=== PATIENT | female | born 1940 | race Caucasian/White ===

== ENCOUNTER → 2016-08-11 | Outpatient (CLI) | payer OTHER ==
[~2016-08-11] MED LIST: ALBUTEROL17 GM INH; ASPIRINEC PO; AUGMENTIN875 M1 PO; BAYER ASPIRIN325 M1 PO; BENICAR; BENZONATATE PO; BLOOD PRESSURE MED; BYSTOLIC10 MG PO; CALCIUM CARBON500 MG PO; CHOLESTEROL MA600 MG PO; CRESTOR PO; FISH OIL SOFTGE1 CA1 PO; FORTAMET1000 MG/B1 PO; GLIPIZIDE5 MG/BOTTL PO; HYCODAN60 ML 5MG/ PO; JANUMET XR 50-1 EAC1; JANUMET XR 50-1 EAC1 PO; JANUVIA50 MG PO; KRILL OIL500 MG; LEVAQUIN PO; LEVOFLOXACIN500 MG PO; LIDODERM30 EA TOP; LISINOPRIL PO; LISINOPRIL20 MG PO; MEGARED OMEGA-1 EAC1; METFORMIN PO; METOPROLOL TAR25 MG PO; MOBIC PO; NORVASC PO; NORVASC10 MG PO; PERCOCET5/325 PO; POLYTRIM EYE DR10 ML OP; PREDNISONE PO; PREDNISONE1 MG; PREDNISONE10 MG PO; PRINIVIL20 M1 PO; PROMETHAZINE D118 ML PO; ROBAXIN500 MG PO; SIMVASTATIN20 MG; SYMBICORT INH; TAMIFLU75 M1 DOB; TAMIFLU75 M1 PO; TOPROL XL50 MG; ULTRAM PO; VICODIN 5-3001 EACH; VICODIN 5/500 T1 TAB PO; VIT C; VIT E PO; VITAMIN D400 UNI1 PO; ZITHROMAX PO; ZOCOR PO; [UNRECOGNIZED DRUG - OTHER] PO; [UNRECOGNIZED DRUG - REMARK]
--- NOTE | ~2016-08-11 | CR7 ---
[facility] A Service of [facility] RADIOLOGY TEXT RESULTS PATIENT: ADRIENNE ROJAS LOCATION: [facility] : 41 UNIT #: [id number] AGE: [address]: Carolina Ballard MD SEX: F ORDER DR: [id number] [address] [address] [id number] O MR#: [id number] Acc #: [id number] NAME: ADRIENNE ROJAS : 1940 SEX: F STUDY DATE/TIME: 08/11/2016 12:45 UNIT: [facility] ROOM: STUDY DESCRIPTION: CR Abdomen Single AP View Attending Physician: Carolina Ballard M.D. Referring Physician: Carolina Ballard M.D. Ordering Physician: Carolina Ballard M.D. Primary Care Physician: Carolina Ballard M.D. MEDICAL IMAGING REPORT This report is preliminary unless electronic signature is present. EXAM Single-view abdomen HISTORY 76-year-old female, hypertonic bladder, incomplete bladder emptying, history of kidney stones diagnosed 08/07/2016, follow up for kidney stone, stent placed 1 week ago. COMPARISON Single-view abdomen 08/07/2016. FINDINGS Single view of the abdomen demonstrates a double-J stent in place on the right in expected position. Adjacent to the proximal pigtail in the expected right renal pelvis, there is about 6-7 mm right renal stone which is unchanged. No stones are seen along the course of the stent or within the bladder. Moderate amount of colonic stool with otherwise a normal bowel gas pattern. Degenerative changes noted in the lumbar spine and hips. Dictated by... Ilia Lou M.D. THIS IS AN ELECTRONICALLY VERIFIED REPORT Ilia Lou M.D. at 08/12/2016 8:24 AM AMILCAR/carrie TD: 08/11/2016 21:47 JOB #: [id number] [facility] A Service [facility] RADIOLOGY TEXT RESULTS PATIENT: ADRIENNE ROJAS LOCATION: [facility] : 41 UNIT #: [id number] AGE: [address]: Carolina Ballard MD SEX: F ORDER DR: MEDICAL IMAGING REPORT Page 1 of 1
--- NOTE | ~2016-08-11 | CR90 ---
[facility]. [facility] A Service of [facility] RADIOLOGY TEXT RESULTS PATIENT: ADRIENNE ROJAS LOCATION: [facility] : 41 UNIT #: [id number] AGE: [address]: Carolina Ballard MD SEX: F ORDER DR: [id number] [place] [id number] O MR#: [id number] Acc #: [id number] NAME: ADRIENNE ROJAS : 1940 SEX: F STUDY DATE/TIME: 08/11/2016 12:11 UNIT: [facility] ROOM: STUDY DESCRIPTION: CR Elbow 2 View Lt Attending Physician: Carolina Ballard M.D. Referring Physician: Carolina Ballard M.D. Ordering Physician: Carolina Ballard M.D. Primary Care Physician: Carolina Ballard M.D. MEDICAL IMAGING REPORT This report is preliminary unless electronic signature is present. EXAM Left elbow 2 views 08/11/2016 at 12:11 p.m. HISTORY History - history sheet states pain posterior elbow. Fell 2 weeks ago. Hit elbow on the floor. FINDINGS There is no fracture or dislocation. No joint effusion or osseous lesion is noted. IMPRESSION 1. No acute findings. Dictated by... Yamileth Jernigan M.D. THIS IS AN ELECTRONICALLY VERIFIED REPORT Yamileth Jernigan M.D. at 08/12/2016 8:10 AM [facility] TD: 08/11/2016 21:30 JOB #: [id number] MEDICAL IMAGING REPORT Page 1 of 1
--- NOTE | ~2016-08-11 | CR252 ---
[facility] A Service of [facility] RADIOLOGY TEXT RESULTS PATIENT: ADRIENNE ROJAS LOCATION: [facility] : 41 UNIT #: [id number] AGE: [address]: Carolina Ballard MD SEX: F ORDER DR: [id number] [address] [address] [id number] O MR#: [id number] Acc #: [id number] NAME: ADRIENNE ROJAS : 1940 SEX: F STUDY DATE/TIME: 08/11/2016 12:11 UNIT: [facility] ROOM: STUDY DESCRIPTION: CR Tibia and Fibula 2 Views Lt Attending Physician: Carolina Ballard M.D. Referring Physician: Carolina Ballard M.D. Ordering Physician: Carolina Ballard M.D. Primary Care Physician: Carolina Ballard M.D. MEDICAL IMAGING REPORT This report is preliminary unless electronic signature is present. EXAM Left tibia-fibula - 2 views 08/11/2016 at 12:11 p.m. HISTORY History - history sheet states knot and hurting. Pain midshaft tibia-fibula. Symptoms for 2 weeks. Fell. FINDINGS The location of the patient's knot is not marked nor specifically detailed in the history. There appears to be a small focus of soft tissue edema in the anterior pre-tibial mid-leg region. There is no fracture, radiopaque foreign body, or osseous lesion. There is a meniscal chondrocalcinosis which is not an acute finding. IMPRESSION 1. Possible small focus of soft tissue swelling and prominence of pre-tibial region of the mid- to lower leg. 2. No acute bony abnormality. 3. Meniscal chondrocalcinosis. Dictated by... Yamileth Jernigan M.D. THIS IS AN ELECTRONICALLY VERIFIED REPORT Yamileth Jernigan M.D. at 08/12/2016 8:10 AM DEEDEE/carrie TD: 08/11/2016 21:24 JOB #: [id number] [facility] A Service of [facility] RADIOLOGY TEXT RESULTS PATIENT: ADRIENNE ROJAS LOCATION: [facility] : 41 UNIT #: [id number] AGE: [address]: Carolina Ballard MD SEX: F ORDER DR: MEDICAL IMAGING REPORT Page 1 of 1
== END | disposition home or self-care (01) ==
LOC: SRAD 12:02
DX: M25.522 Pain in left elbow (principal); M79.662 Pain in left lower leg; M11.272 Other chondrocalcinosis, left ankle and foot; N31.8 Other neuromuscular dysfunction of bladder
CPT/HCPCS: 73070; 73590; 74000